=== PATIENT | female | born 1975 | race Caucasian/White ===

== ENCOUNTER → 2017-05-31 | Outpatient (CLI) | payer MEDICARE, OTHER ==
[~2017-05-31] MED LIST: ACETAMINOPHEN PO; ADVAIR 1001 DISK W/D PO; ADVIL200 M1 PO; ALBUTEROL MININEB NEB; ALBUTEROL17 GM; ALBUTEROL17 GM INH; ALLERGY RELIEF180 MG PO; AMITRIPTYLINE H50 MG PO; ATARAX PO; BENADRYL25 MG PO; BENZONATATE PO; CELEBREX PO; CLEOCIN PO; COLACE PO; DARVOCET-N 1001 TAB PO; DETROL LA PO; DIAZEPAM PO; FAMOTIDINE PO; FLEXERIL PO; FLEXERIL10 MG; FLEXERIL10 MG PO; FLONASE 0.05% N16 G1; KEFLEX500 MG PO; LORTAB 10-5001 EACH; LORTAB 10/500 T1 TAB PO; LORTAB 5/500 TA1 TA1 PO; MEDROL DOSEPAK4 MG DOB; MEDROL PO; MONTELUKAST SOD10 MG PO; MULTIVITAMINS1 EAC3; NEURONTIN800 MG PO; NEXIUM PO; PEPTO BISMOL PO; PORTLAND PHARMACY; POTASSIUM99 M1 PO; PREDNISONE PO; PROZAC PO; ROBITUSSIN ALL118 ML PO; SARAFEM20 MG PO; SINGULAIR PO; STERAPRED5 MG/DOSE1 PO; SUMATRIPTAN SU100 MG PO; SYMBICORT INH; TROKENDI XR100 MG PO; TUSSIN MAX15 MG/5 M1 PO; ULTRAM PO; VESICARE PO; VICODIN 5/1 TAB 5/50 PO; VISTARIL PO; VOLTAREN50 MG PO; VOLTAREN75 MG PO; WELLBUTRIN XL150 M2; ZANTAC; ZANTAC PO; ZITHROMAX PO; ZOVIRAX800 MG PO; ZYRTEC PO; [UNRECOGNIZED DRUG - REMARK]
--- NOTE | ~2017-05-31 | CR63 ---
[facility] A Service of [facility] [place] RADIOLOGY TEXT RESULTS PATIENT: CAROLYN FRANCO LOCATION: [facility] : 73 UNIT #: [id number] AGE: [address]: Chaparro Eagle MD SEX: F ORDER DR: [id number] [facility] [address] [place], [place] [address] [id number] O MR#: [id number] Acc #: [id number] NAME: CAROLYN FRANCO : 1975 SEX: F STUDY DATE/TIME: 05/31/2017 8:01 UNIT: [facility] ROOM: STUDY DESCRIPTION: CR Chest 2 View Attending Physician: Chaparro Eagle M.D. Referring Physician: Chaparro Eagle M.D. Ordering Physician: Chaparro Eagle M.D. Primary Care Physician: Jenn Conn M.D. MEDICAL IMAGING REPORT This report is preliminary unless electronic signature is present EXAM PA and lateral chest 05/31/2017 INDICATION Preop Lap-Band surgery with anemia. COMPARISON 05/01/2016. FINDINGS PA and lateral examination of the chest upright shows a good expansion of the parenchyma with a normal distribution of the pulmonary vascularity. There is no indication of congestion, effusion, infiltrate, tumor, or nodular density. The pleural reflections and diaphragmatic contours are normal. The cardiac silhouette and mediastinal anatomy is within normal limits. IMPRESSION Normal chest. Dictated by... Vince Mcdonald M.D. THIS IS AN ELECTRONICALLY VERIFIED REPORT Vince Mcdonald M.D. at 05/31/2017 1:25 PM BERNICE/jack TD: 05/31/2017 09:11 JOB #: [id number] [facility] A Service [facility] RADIOLOGY TEXT RESULTS PATIENT: CAROLYN FRANCO LOCATION: [facility] : 73 UNIT #: [id number] AGE: [address]: Chaparro Eagle MD SEX: F ORDER DR: MEDICAL IMAGING REPORT Page 1 of 1 COPY
--- NOTE | ~2017-05-31 | CR97 ---
[facility] A Service of [facility] RADIOLOGY TEXT RESULTS PATIENT: CAROLYN FRANCO LOCATION: [facility] : 73 UNIT #: [id number] AGE: [address]: Chaparro Eagle MD SEX: F ORDER DR: [id number] [facility] [address] [place], [place] [address] [id number] O MR#: [id number] Acc #: [id number] NAME: CAROLYN FRANCO : 1975 SEX: F STUDY DATE/TIME: 05/31/2017 8:38 UNIT: [facility] ROOM: STUDY DESCRIPTION: CR Esophagram Attending Physician: Chaparro Eagle M.D. Referring Physician: Chaparro Eagle M.D. Ordering Physician: Chaparro Eagle M.D. Primary Care Physician: Jenn Conn M.D. MEDICAL IMAGING REPORT This report is preliminary unless electronic signature is present EXAM Esophagram 05/31/2017 HISTORY Planned lap band placement. PROCEDURE Study performed with 6 spot images and 0.3 minutes of fluoroscopy. FINDINGS Esophagus is normal in caliber. There is no mass or ulceration or hiatal hernia, and peristalsis is normal. IMPRESSION Normal esophagram. Dictated by... Luis Mcpherson M.D. THIS IS AN ELECTRONICALLY VERIFIED REPORT Luis Mcpherson M.D. at 05/31/2017 4:04 PM TEV/psc TD: 05/31/2017 10:53 JOB #: [id number] MEDICAL IMAGING REPORT Page 1 of 1 COPY
--- NOTE | ~2017-05-31 | EKG ---
PATIENT: CAROLYN FRANCO UNIT #: [id number] Ventricular Rate: 81 BPM Atrial Rate: 81 BPM P-R Interval: 136 ms QRS Duration: 82 ms Q-T Interval: 378 ms QTC Calculation(Bezet): 439 ms P Hanna: 36 degrees Calculated R Hanna: 3 degrees Calculated T Hanna: 13 degrees Diagnosis Line: Normal sinus rhythm Diagnosis Line: Normal ECG Diagnosis Line: When compared with ECG of 01-MAY-2016 09:30, Diagnosis Line: No significant change was found Diagnosis Line: Confirmed by LIZA JACKSON MD ([id number]) on 05/31/2017 Diagnosis Line: 5:51:14 PM INTERPRETING MD: MANUEL CARTY
[2017-05-31 09:11] LABS: HEMATOCRIT 38.5 % (35.0-45.0); HEMOGLOBIN 13.1 gm/dL (12.0-16.0); MEAN CELL VOLUME 92.4 FL (83-96); MEAN CORPUSCULAR HEMOGLOBIN 31.3 PG (28-34); MEAN CORPUSCULAR HGB CONC 33.9 g/dL (30-36); MEAN PLATELET VOLUME 6.4 FL (6.5-11.5); RED BLOOD COUNT 4.17 X10e (3.90-5.30); RED CELL DISTRIBUTION WIDTH 14.9 % (11.0-15.5); WHITE BLOOD COUNT 10.6 X10e3 (4.0-10.5)
[2017-05-31 09:39] LABS: ALBUMIN SERUM 3.9 g/dL (3.5-5.0); BILIRUBIN,TOTAL 1.1 mg/dL (0.2-2.0); BUN/CREATININE RATIO 18.57; CREATININE SERUM 0.7 mg/dL (0.6-1.4); GLOM FILT RATE Estimated 106.1 mL/min (>60); POTASSIUM 4.2 mmol/L (3.5-5.1); PROTEIN TOTAL SERUM 7.4 g/dL (6.0-8.3)
== END | disposition home or self-care (01) ==
LOC: CAMB 07:39
PROVIDERS: Surgery
DX: Z01.818 Encounter for other preprocedural examination (principal)
CPT/HCPCS: 36415; 71020; 74220; 80053; 80061; 84443; 85027; 93005